=== PATIENT | male | born 1985 | race African-American/Black ===

== ENCOUNTER 2016-12-06 10:32 | Emergency (ER) | payer SELFPAY ==
--- NOTE | 2016-12-06 10:39 | PDOC ---
History of Present Illness - General Chief Complaint: Syncope/Near Syncope Stated Complaint: PT STATES HE PASSED OUT LAST NIGHT INJURED LIP Time Seen by Provider: 12/06/16 10:36 History Source: Patient Exam Limitations: No Limitations - History of Present Illness Initial Comments: 12/06/16 10:40 This patient is a 31-year-old male with no significant past medical history who presents emergency department status post syncopal event early this morning. Patient states he had had two 24 ounce beers yesterday While in the bathroom urinating, he syncopized. He denies preceding chest pain, shortness of breath, palpitations. He stood up after this happened, felt dizzy. He recalls falling, felt himself hit the sink, does not think that he passed out Denies history of seizure. Denies prior episodes of syncope Brother of seizures Sister has had fainting episodes related to Asthma PMH: kidney stones, wrist dislocation PSH: denies Meds: denies ALL: NKDA Social: (+) alcohol use, denies drugs GENERAL/CONSTITUTIONAL: No: fever, chills, weakness, loss of appetite. HEAD, EYES, EARS, NOSE AND THROAT: No: change in vision, ear pain, discharge, sore throat, throat swelling. CARDIOVASCULAR: No: chest pain, lightheadedness, palpitations, syncope RESPIRATORY: No: cough, shortness of breath, wheezing, hemoptysis, stridor. GASTROINTESTINAL: No: nausea, vomiting, diarrhea, abdominal cramping, rectal bleeding, constipation. GENITOURINARY: No: dysuria, hematuria, frequency, urgency, flank pain. MUSCULOSKELETAL: No: back pain, neck pain, joint pain, muscle swelling or pain SKIN: Yes: laceration of lip No: lesions, pallor, rash or easy bruising. NEUROLOGIC: No: headache, vertigo, paresthesias, weakness ENDOCRINE: No: unexplained weight gain or loss HEMATOLOGIC/LYMPHATIC: No: anemia, easy bleeding, swelling nodes. GENERAL: The patient is in no acute distress. HEAD: (+) facial trauma (see skin) EYES: PERRLA, EOMI, sclera anicteric, conjunctiva clear. ENT: Ears normal, nares patent, oropharynx clear without exudates. Moist mucous membranes. NECK: Normal range of motion, supple without lymphadenopathy, JVD, or masses. LUNGS: Breath sounds equal, clear to auscultation bilaterally. No wheezes, and no crackles. HEART:Regular rate and rhythm, normal S1 and S2 without murmur, rub or gallop. ABDOMEN: Soft, nontender, normoactive bowel sounds. No guarding, no rebound. EXTREMITIES: Normal range of motion, no edema. No clubbing or cyanosis. No erythema, or tenderness. NEUROLOGICAL: Cranial nerves II through XII grossly intact. Normal speech. No focal neurological deficits. MUSCULOSKELETAL: Back non-tender to palpation, no CVA tenderness SKIN: 1.5 cm upper lip laceration, does not extend into the oral mucosa, 12/06/16 10:59 12/06/16 11:05 12/06/16 11:31 Past History - Past Medical History Allergies/Adverse Reactions: Allergies Allergy/AdvReac Type Severity Reaction Status Date / Time No Known Allergies Allergy Unverified 12/06/16 10:56 Home Medications: Ambulatory Orders NK [No Known Home Medication] 12/06/16 Procedures - Laceration/Wound Repair Upper Lip Wound Length: to 2.5 cm Wound Explored: clean Wound's Depth, Shape: superficial, linear Irrigated w/ Saline: Yes Anesthesia: 1% Lidocaine Amount of Anesthetic (ccs): 1 Wound Debrided: minimal Wound Repaired With: Sutures Suture Size/Type: 5:0 Number of Sutures: 2 Layer Closure: No Heart Score/ECG Review #1 ECG reviewed & interpreted by me at: 12:55 12/06/16 12:55 Twelve-lead EKG was performed and reviewed by me. There is normal sinus rhythm with a slightly bradycardiac rate of 53 bpm. The axis is normal. The intervals are normal - pr: 178ms, QRS:96ms, QTc: 345ms. J point elevation v3, v4. T wave upright ED Treatment Course - LABORATORY CBC & Chemistry Diagram: 12/06/16 11:12 12/06/16 11:13 Medical Decision Making - Medical Decision Making 12/06/16 11:30 Pt presents to the ER s/p fall Possible syncopal event 12/06/16 11:32 Will do EKG Will do basic labs Will contact Cardiology Will re assess Will repair lip laceration 12/06/16 12:49 12/06/16 12:49 Laboratory Tests 12/06/16 12/06/16 12/06/16 11:12 11:12 11:13 WBC 4.9 Hgb 16.2 Hct 48.4 Plt Count 200 Sodium 136 Potassium 3.8 Chloride 104 Carbon Dioxide 26 BUN 11 Creatinine 0.8 Troponin I < 0.03 L 12/06/16 13:03 [address] calls placed to Dr broderick (rest room matron) Call placed to Dr. Benjamin No response The patient would like to go home Will: Discharge to home Pt asked to follow up with PMD and with Cardiology to eval for possible arrhythmia Return to the ER for any other concerns or complaints *DC/Admit/Observation/Transfer Diagnosis at time of Disposition: Lip laceration Qualifiers: Encounter type: initial encounter Qualified Code(s): S01.511A - Laceration without foreign body of lip, initial encounter Syncope Qualifiers: Syncope type: unspecified Qualified Code(s): R55 - Syncope and collapse - Discharge Dispostion Disposition: HOME Condition at time of disposition: Stable Admit: No - Referrals Referrals: Ryan Benjamin MD [Staff Physician] - Sherron Rothman MD [Staff Physician] - - Patient Instructions Printed Discharge Instructions: DI for Syncope in Adults (Fainting), DI for Laceration Repair -- Simple Additional Instructions: Mr Ruelas Thank you for coming in to the ER today Please be sure to follow up with the online merchandiser and primary doctors as we discussed I would like to be sure that he is evaluated for possible arrhythmias Keep the incision clean and dry for 24 hours. After 24 hours, you may allow the soap and water to rinse off your incision. Avoid direct pressure of the water to the incision. Pat the incision dry with a clean cloth. Apply a small amount of bacitracin onto the incision. Take tylenol/motrin as needed for pain. Return to the ER if you notice red streaks, increase redness/swelling/severe pain to the incision. Suture removal in 7 days
[2016-12-06 10:58] VITALS: TEMP 98.7; BMI 17.9
[2016-12-06 11:50] LABS: MCH 32.2 pg (25.7-33.7); MCHC 33.5 g/dl (32.0-35.9); PLATELET COUNT 200 K/MM3 (134-434); WHITE BLOOD COUNT 4.9 K/mm3 (4.0-10.8)
[2016-12-06 12:00] LABS: ANION GAP 6 (8-16); CALCIUM 9.3 mg/dl (8.4-10.2); CO2 26 mmol/L (22-28); CREATININE 0.8 mg/dl (0.6-1.3); GLUCOSE,RANDOM 83 mg/dl (74-106)
[2016-12-06] MEDS ORDERED: DIPHTH,PERTUSS(ACELL),TET 0.5 ML DISP.SYRIN IM ONE (13:08)
[2016-12-06 13:09] VITALS: BP 140/87; PULSE 62
--- NOTE | 2016-12-06 15:54 | EKG ---
Test Reason : Blood Pressure : / mmHG Vent. Rate : 053 BPM Atrial Rate : 053 BPM P-R Int : 178 ms QRS Dur : 096 ms QT Int : 368 ms P-R-T Axes : 048 076 052 degrees QTc Int : 345 ms SINUS BRADYCARDIA NO PREVIOUS ECGS AVAILABLE Confirmed by MD RAVINDER, SANNA ([id number]) on 12/06/2016 3:54:24 PM Referred By: REJI OSEI Confirmed By:SANNA CATSELLON MD
== END 2016-12-06 13:24 | disposition home or self-care (01) ==
LOC: FER 10:32
PROC: 0CQ0XZZ Repair Upper Lip, External Approach (ICD-10-PCS; principal; 2016-12-06)
PROC: 3E0234Z Introduction of Serum, Toxoid and Vaccine into Muscle, Percutaneous Approach (ICD-10-PCS; 2016-12-06)
DX: S01.511A Laceration without foreign body of lip, initial encounter (principal); W22.03XA Walked into furniture, initial encounter; Y93.89 Activity, other specified; Y92.89 Other specified places as the place of occurrence of the external cause
CPT/HCPCS: 36415; 80048; 84484; 85027; 90715; 93005; 99285-25

== ENCOUNTER 2016-12-13 12:53 | Emergency (ER) | payer SELFPAY ==
--- NOTE | 2016-12-13 12:58 | PDOC ---
History of Present Illness - General Chief Complaint: Suture/Staple Removal(Here) Stated Complaint: SUTURE REMOVAL ABOVE THE LIP Time Seen by Provider: 12/13/16 12:57 - History of Present Illness Initial Comments: 12/13/16 13:35 31-year-old male with no significant past medical history presents for suture removal. Patient reports sutures are placed on December 06 after he syncopized and sustained a laceration right above his upper lip. He denies any issues with the stitches, denies any fevers or chills. Reports that he has not even noticed the stitches. Has been in his usual state of good health, denies chest pain, shortness of breath, headache, weakness, abdominal pain, nausea, vomiting, diarrhea, lower extremity edema, rashes. Social hx: +social etoh, denies illicit drugs or tobacco Allergies: NKDA Past History - Past Medical History Allergies/Adverse Reactions: Allergies Allergy/AdvReac Type Severity Reaction Status Date / Time No Known Allergies Allergy Unverified 12/06/16 10:56 Home Medications: Ambulatory Orders Cephalexin [Keflex] 250 mg PO Q6H #28 capsule 12/06/16 - Psycho/Social/Smoking Cessation Hx Anxiety: No Suicidal Ideation: No Smoking History: Never smoked Hx Alcohol Use: Yes (2 24 OZ BEERS) Drug/Substance Use Hx: No Substance Use Type: Alcohol Review of Systems - Review of Systems Comments:: 12/13/16 13:37 GENERAL/CONSTITUTIONAL: No fever or chills. No weakness. HEAD, EYES, EARS, NOSE AND THROAT: No change in vision. No ear pain or discharge. No sore throat. CARDIOVASCULAR: No chest pain or shortness of breath. RESPIRATORY: No cough, wheezing, or hemoptysis. GASTROINTESTINAL: No nausea, vomiting, diarrhea or constipation. GENITOURINARY: No dysuria, frequency, or change in urination. MUSCULOSKELETAL: No joint or muscle swelling or pain. No neck or back pain. SKIN: No rash, + sutures NEUROLOGIC: No headache, vertigo, loss of consciousness, or change in strength/ sensation. ENDOCRINE: No increased thirst. No abnormal weight change. HEMATOLOGIC/LYMPHATIC: No anemia, easy bleeding, or history of blood clots. ALLERGIC/IMMUNOLOGIC: No hives or skin allergy. *Physical Exam - Physical Exam Comments: 12/13/16 13:38 GENERAL: Awake, alert, and fully oriented, in no acute distress HEAD: No signs of trauma EYES: PERRLA, EOMI, sclera anicteric, conjunctiva clear ENT: Auricles normal inspection, hearing grossly normal, nares patent, oropharynx clear without exudates. Moist mucosa NECK: Normal ROM, supple, no lymphadenopathy, JVD, or masses LUNGS: Breath sounds equal, clear to auscultation bilaterally. No wheezes, and no crackles HEART: Regular rate and rhythm, normal S1 and S2, no murmurs, rubs or gallops ABDOMEN: Soft, nontender, normoactive bowel sounds. No guarding, no rebound. No masses EXTREMITIES: Normal range of motion, no edema. No clubbing or cyanosis. No cords, erythema, or tenderness NEUROLOGICAL: Normal speech, cranial nerves intact, negative pronator drift, 5/ 5 strength in all 4 extremities, normal sensation to light touch in all 4 extremities, normal cerebellar exam, normal gait, normal reflexes and tone SKIN: Warm, Dry, normal turgor, no rashes or lesions noted. 2 sutures noted above upper lip with wound appearing c/d/i. No erythema, induration or fluctuance underneath sutures. Repeat BP on my exam 131/90 Medical Decision Making - Medical Decision Making 12/13/16 13:40 31-year-old male presents for suture removal. 2 nylon sutures removed without complication. Initial BP elevated in triage although cuff was likely too small. On my check, rpt BP was 131/90. Patient stable for discharge home. *DC/Admit/Observation/Transfer Diagnosis at time of Disposition: Encounter for removal of sutures - Discharge Dispostion Condition at time of disposition: Good Admit: No - Patient Instructions Printed Discharge Instructions: DI for Suture Removal Additional Instructions: Follow up with your primary care doctor within 1-2 weeks. Return to the emergency department immediately for any new or concerning symptoms or if your symptoms get worse. Thank you for coming to the Emergency Department today for your care. It was a pleasure to see you today. - Attestations Physician Attestion: 12/13/16 13:41 I, Dr. Lulu Toscano MD, attest that this document has been prepared under my direction and personally reviewed by me in its entirety. I further attest, that it accurately reflects all work, treatment, procedures and medical decision -making performed by me.
[2016-12-13 13:03] VITALS: BP 146/103; PULSE 82; TEMP 98.1; BMI 17.9
== END 2016-12-13 13:40 | disposition home or self-care (01) ==
LOC: FER 12:53
DX: Z48.02 Encounter for removal of sutures (principal)
CPT/HCPCS: 99281-25